=== PATIENT | female | born 1935 | race Caucasian/White ===

== ENCOUNTER 2023-12-06 18:35 | Emergency (ER) | payer MEDICARE, BC, SELFPAY ==
[2023-12-06 18:37] VITALS: BP 206/90
[2023-12-06 19:34] VITALS: BP 177/82
--- NOTE | 2023-12-06 20:29 | ED.GENMED ---
History of Present Illness
General
Chief Complaint: Fall
Source: patient
Exam Limitations: none
Time Seen by Provider: 12/06/23 19:23
Travel History
Have you had any contact with someone who has COVID-19?: No
Do you have any symptoms of coronavirus? Fever > 100 degrees, chills, cough, shortness of breath, sore throat, loss of taste or smell, muscle aches, or headache?: No
History of Present Illness
History of Present Illness:
This is a 88 year old female that comes in with c/o fall. States that she was in her Kitchen making dinner. States that she turned around and must have lost her balance and fell backward hitting her head. Unsure if there was any LOC. Denies any
fever, chills, chest pain, SOB, abd pain, nausea, vomiting, diarrhea, headache, dizziness, urinary burning.
Past History
Past History
ED Past Medical History: Cancer (Skin CA), HTN, Hypercholesterolemia, Psychiatric (Anxiety/depression) and Other (Osteoarthritis, diverticulitis)
ED Past Surgical History: Bowel resection, Gynecological (Hysterectomy) and Orthopedic (Left ankle surgery with rods)
Social History
Tobacco: Non-smoker
Alcohol: None
Personal:
Living: with family
Family History
Family History: Other (Noncontributory)
Review of Systems
Review of Systems
All Other Systems: ROS reviewed and negative except as documented in HPI and ROS
Constitutional: Reports no symptoms; Denies fever or chills
EENT: Reports no symptoms
Respiratory: Reports no symptoms; Denies cough or trouble breathing
Cardiac: Reports no symptoms; Denies chest pain
ABD/GI: Reports no symptoms; Denies abdominal pain, nausea, vomiting or diarrhea
: Denies dysuria, frequency or urgency
Musculoskeletal: Reports no symptoms
Skin: Reports no symptoms
Neurological: Reports no symptoms; Denies dizzy or headache
Psychiatric: Reports no symptoms
Phy Exam
General Physical Exam
General Presentation: no apparent distress
General age: appears stated age
General Skin: warm and dry
General Habitus: elderly
General Mental: alert
General Hydration: appears well hydrated
ENT Exam
ENT Exam: TM's normal, pharynx normal and neck supple
Eye Exam
Eye Exam: EOMI
Cardiovascular Exam
Cardiovascular Exam: regular rate/rhythm, no edema, no murmur and normal peripheral pulses
Pulmonary Exam
Pulmonary Exam: lungs clear, no respiratory distress, no rales, chest non tender, no crackles, no rhonchi, no wheezing and no cough
Gastrointestinal Exam
Gastrointestinal Exam: normal bowel sounds, non tender, soft, no organomegaly, no pulsatile mass and non distended
Musculoskeletal Exam
Musculoskeletal Exam: full ROM, no edema and other (Negative for any cervical neck tenderness or spinal tenderness. patient can cross over, abduct, Flex elbows and move wrist and fingers. negative for any low back tenderness or discomfort with
flexion of the knee's. )
Skin Exam
Skin Exam: normal color, warm/dry, no rash, no petechia and other (small little abrasion of the right lateral eye brow, with small amount of swelling)
Psychiatric Exam
Psychiatric Exam: normal mood/affect
Course
Orders/Labs/Results
Orders:
Orders
12/06/23 20:29
CT Head W/o Iv Contrast Urgent
Comment:
Reason For Exam: fall
Vital Signs
Initial and Last Documented VS:
Initial Vital Signs
Temp Pulse Resp BP Pulse Ox
97.8 F 67 16 206/90 98
12/06/23 18:37 12/06/23 18:37 12/06/23 18:37 12/06/23 18:37 12/06/23 18:37
Last Documented Vital Signs
Temp Pulse Resp BP Pulse Ox
97.8 F 68 18 178/88 94
12/06/23 18:37 12/06/23 23:21 12/06/23 23:21 12/06/23 23:18 12/06/23 23:21
MDM/Problems Addressed
Differential Diagnosis Includes:
Fall,
MDM/Problems Addressed:
This is a 88 year old female that comes in with c/o fall. States that she turned and lost her balance and fell backward hitting her head.
Will get CT of the head.
Chronic conditions affecting care:
NA
Acute Exacerbation and/or Progression of Chronic Illness:
NA
*Radiology
Radiology exam reviewed: radiology read reviewed (CT head- right inferolateral frontal meningioma as described. No evidence of acute intracranial abnormality. )
*Pulse Oximetry
Patient hypoxic: no
*EKG
Interpreted by ED Provider?: NA
Rate: EKG- N/A
*Bundle Collector Interpretation
Rate: Bundle Collector- N/A
*Critical Care Note
Total Time (30-74mins, 75-104mins- exclusive of procedures): Not Applicable
ED Attending Note
-
Portions of this chart may have been created with voice recognition software.� Occasional wrong word or��sound alike� substitutions may have occurred due to the inherent limitations of voice recognition software.
Discharge Plan
Departure
Patient Disposition: Home (Routine Discharge)
Date of Disposition: 12/06/23
Time of Disposition: 23:08
Patient with high blood pressure during this ER visit?: Yes
Condition: Good
Covid-19: Not Applicable
Discharge Problem:
Accidental fall, Minor head injury
Instructions: Head Injury in Adults (DC), Preventing falls in adults, BLOOD PRESSURE
Prescriptions:
No Action
atorvastatin 10 MG tablet
10 mg PO HS
amlodipine-benazepril 1 EACH capsule
1 ea PO HS
escitalopram oxalate 10 MG tablet
10 mg PO HS
metoprolol tartrate 75 MG tablet
75 mg PO DAILY
tramadol 50 MG tablet
25 - 50 mg PO Q6HPRN PRN (Reason: severe pain/breakthrough pain) Qty: 7 0RF
Referrals:
Dickson Zhao MD [Family Provider] - Call in 1-3 days for appt
Activity Restrictions/Additional Instructions:
As discussed, your CT of the head is negative for any acute process. Please increase your water intake to 8-8oz glasses daily. Tylenol for any headache pain. IF YOU HAVE VOMITING MORE THEN TWICE, HEADACHE NOT RELIEVED BY TYLENOL OR YOU HAVE ANY
CHANGE IN MENTAL STATUS OR ANY OTHER CONCERNS PLEASE RETURN TO THE EMERGENCY ROOM.
Interventions
Interventions:
*Risk Screen - Suicide Last Done: 12/06/23 23:20
*General Assessment Last Done: 12/06/23 18:37
*Neglect/Abuse Screening Last Done: 12/06/23 23:20
*ED COVID-19 Vaccine History Last Done: 12/06/23 18:37
*Nursing Disposition Last Done: 12/06/23 23:20
ED-Musculoskeletal Assessment Last Done: 12/06/23 19:54
ED- Neurological Assessment Last Done: 12/06/23 19:54
ED-Skin Assessment Last Done: 12/06/23 19:54
Discharge Date and Time
Discharge Date/Time: 12/06/23 23:49
[2023-12-06 23:18] VITALS: BP 178/88
== END 2023-12-06 23:49 | disposition home or self-care (01) ==
LOC: EMR 18:35
PROVIDERS: EMERGENCY PHYSICIAN Emergency Medicine; FAMILY PHYSICIAN Family Medicine
DX: S09.90XA Unspecified injury of head, initial encounter (principal); W19.XXXA Unspecified fall, initial encounter; I10 Essential (primary) hypertension
CPT/HCPCS: 99284; 70450